=== PATIENT | female | born 1955 | race Hispanic/Latino ===

== ENCOUNTER 2017-03-08 17:25 | Emergency (ER) | payer MEDICAID | END 2017-03-08 18:38 | disposition home or self-care (01) | LOC: EDH 17:25 | DX: L29.2 Pruritus vulvae (principal); R60.0 Localized edema; I10 Essential (primary) hypertension; F31.9 Bipolar disorder, unspecified; Z98.890 Other specified postprocedural states; Z72.0 Tobacco use | CPT/HCPCS: 99281 ==